=== PATIENT | female | born 1990 ===

== ENCOUNTER 2017-09-24 22:03 | Emergency (ER) | payer MEDICAID ==
[2017-09-24 22:19] VITALS: PULSE 77; RESP 18; TEMP 97.5; O2SAT 100
[2017-09-24] MEDS ORDERED: Fluorescein 1 mg Ophthalmic Strip ONE (22:29)
--- NOTE | 2017-09-24 22:37 | ED PDOC ---
HPI: Eye Injury/Pain Time Seen by Provider: 09/24/17 22:21 Chief Complaint (Nursing): Eye Problem History Per: Patient Additional Complaint(s): Pt. states earlier this evening she was poked in the L eye with a broomstick which did not break. C/O pain, tearing, and light sensitivity to the L eye. Denies LOC, FB sensation, hx of DM, contact lens use. Past Medical History Reviewed: Historical Data, Nursing Documentation, Vital Signs Vital Signs: Last Vital Signs Temp 97.5 F L 09/24/17 22:15 Pulse 77 09/24/17 22:15 Resp 18 09/24/17 22:15 BP Pulse Ox 100 09/24/17 22:15 - Family History Family History: States: No Known Family Hx - Home Medications Home Medications: Ambulatory Orders Medication Instructions Recorded Erythromycin 0.5% [Erythromycin 1 applic LEFTEYE QID #1 tube 09/24/17 0.5% Oint] - Allergies Allergies/Adverse Reactions: Allergies Allergy/AdvReac Type Severity Reaction Status Date / Time No Known Allergies Allergy Verified 09/24/17 22:15 Review of Systems ROS Statement: Except As Marked, All Systems Reviewed And Found Negative Eyes: Positive for: Pain Physical Exam - Physical Exam Appears: Positive for: Well, Non-toxic, No Acute Distress Head Exam: Positive for: ATRAUMATIC, NORMAL INSPECTION, NORMOCEPHALIC Skin: Positive for: Normal Color, Warm. Negative for: Rash Eye Exam: Positive for: EOMI, PERRL, Conjunctival injection (b/l), Other (L eye with fluoroscein uptake at 2 o'clock position; no FB noted). Negative for: Nystagmus, Periorbital swelling, Periorbital tenderness, Scleral icterus Neurologic/Psych: Positive for: Alert, Oriented, Gait (steady unassisted). Negative for: Aphasia, Facial Droop - ECG O2 Sat by Pulse Oximetry: 100 Disposition - Clinical Impression Clinical Impression: Corneal abrasion - Patient ED Disposition Is Patient to be Admitted: No - Disposition Referrals: Nikolas Aguirre MD [Staff Provider] - Disposition: Routine/Home Disposition Time: 22:38 Condition: STABLE Prescriptions: Erythromycin 0.5% [Erythromycin 0.5% Oint] 1 applic LEFTEYE QID #1 tube Instructions: Corneal Abrasion (ED) Forms: [facility] (Armenian), [facility] ED School/Work Excuse
[2017-09-24 23:04] VITALS: BP 132/80
== END 2017-09-24 22:40 | disposition home or self-care (01) ==
LOC: H.ER 22:03
DX: S05.02XA Injury of conjunctiva and corneal abrasion without foreign body, left eye, initial encounter (principal); W22.8XXA Striking against or struck by other objects, initial encounter; Y92.89 Other specified places as the place of occurrence of the external cause